=== PATIENT | male | born 1980 | race Caucasian/White ===

== ENCOUNTER 2020-01-19 10:27 | Emergency (ER) | payer OTHER ==
[~2020-01-19] VITALS: Ht 160 cm; Wt 45.4 kg
[2020-01-19 12:35] LABS: HEMATOCRIT 40.7 % (42.0-52.0); HEMOGLOBIN 13.6 gm/dL (14.0-18.0); MCHC 33.3 g/dL (28.0-37.0); MCV 95.9 fL (80.0-100.0); PLATELET COUNT 109 thou/uL (150-400); RBC 4.25 mil/uL (4.50-6.00); RDW 14.6 % (10.5-14.5)
[2020-01-19 12:49] LABS: CALCIUM 8.6 mg/dL (8.5-10.1); CREATININE 0.7 mg/dL (0.7-1.3); POTASSIUM 3.5 mmol/L (3.5-5.1)
[2020-01-19 13:00] LABS: ABSOLUTE NEUTROPHILS 2.6 thou/uL (1.4-8.2); ANISOCYTOSIS 1+; HYPOCHROMASIA SLIGHT
[2020-01-19 14:57] VITALS: BP 102/67
== END 2020-01-19 15:15 | disposition home or self-care (01) ==
LOC: ER 10:27
PROVIDERS: Emergency Medicine
DX: T70.3XXA Caisson disease [decompression sickness], initial encounter (principal); X58.XXXA Exposure to other specified factors, initial encounter

== ENCOUNTER 2020-08-09 13:10 | Emergency (ER) | payer OTHER ==
[~2020-08-09] VITALS: Ht 162.6 cm; Wt 54.4 kg
--- NOTE | ~2020-08-09 | EMS ---
[place] [address] EMS Patient Care Report Name: MOHINI SABA Room #: REG Kelly#: [id number] Admission: 08/09/20 Attend Phys: Discharge: Date of : 80 Report #: [id number] THIS REPORT FOR: //name// Report Transmitted: 08/09/2020 13:07 EMS Care Summary [place], [place]/[facility] Incident [phone] @ 08/09/2020 12:45 Incident Location [address] [place] [address] Patient MOHINI SABA Male, 40 Years 1980 Patient Address [address] [place] [address] Patient History Other,Neurological Condition - Other,Urinary Incontinence, Patient Allergies No known allergies, Patient Medications Unknown, Chief Complaint ASPIRATION Disposition Transported No Lights/[place] Dispatch Reason Choking Transported To [facility] Narrative RESPONDED TO CHOKING AT [facility]. UPON ARRIVAL PT FOUND ALERT AND SITTING IN WHEELCHAIR WITH NRB AT 15LPM ON O2 BY FF CREW. PT IS ALERT TO BASELINE AND VERY DROOLY. PENITENTIARY STAFF REPORT PT WAS EATING FRIED RICE AND APPEARED TO HAVE CHOKED. PT MAKE PRODUCTIVE COUGH AND GRUNTS/MOANS. PT CARRIED TO [place] [address] EMS Patient Care Report Name: MOHINI SABA Room #: REG ER Kelly#: [id number] Admission: 08/09/20 Attend Phys: Discharge: Date of : 80 Report #: [id number] OBTAINED. OXYGEN DISCONTINUED BECAUSE OF SO MUCH EXCESSIVE DROOL PRODUCTION. LUNG SOUNDS CLEAR WITH MINOR WHEEZING NOTED IN LOWER LOBES. SUCTION WAS ATTEMPTED AND SOME RICE AND DROOL NOTED. PT WAS NOT TOLERABLE TO SUCTION FOR LONG. PT CONTINUED TO MAKE PRODUCTIVE COUGHS AND ONLY MUCUS NOTED. PT TRANSPORTED TO [facility] WITH NO CHANGE IN CONDITION. PT TEAM LIFTED TO BED AND HANDRAILS UP. REPORT GIVEN TO NURSE. Initial Vitals @13:01P: 112,R: 20,BP: 143/80,GCS: 11,SpO2: 93,Revised Trauma: 11, @13:06P: 110,R: 20,BP: 146/72,Pain: 0/10,SpO2: 93, Assessments @13:01MENTAL:Person Oriented,SKIN:HEENT:Neck/Airway: Obstructed,Head/Face: No Abnormalities,LUNG SOUNDS:General: No Abnormalities,Left Upper: No Abnormalities,Right Upper: No Abnormalities,Left Lower: No Abnormalities,Right Lower: No Abnormalities,ABDOMEN:General: No Abnormalities,Left Upper: No Abnormalities,Right Upper: No Abnormalities,Left Lower: No Abnormalities,Right Lower: No Abnormalities,PELVIS//GI:Incontinence,EXTREMITIES:Left Arm: Weakness,Left Leg: Weakness,Right Leg: Weakness,Right Arm: Weakness,PULSE:NEURO:Other,@12:55MENTAL:Person Oriented,SKIN:HEENT:Neck/Airway: Obstructed,Head/Face: No Abnormalities,LUNG SOUNDS:ABDOMEN:PELVIS//GI:Incontinence,EXTREMITIES:Right Leg: Weakness,Left Leg: Weakness,Left Arm: Weakness,Right Arm: Weakness,PULSE:NEURO:Other, Impression Foreign Body in Respiratory Tract Procedures @12:55ALS AssessmentResponse: UnchangedSucceeded@13:00Suction Response: UnchangedSucceeded@PTAOxygen FlowRate: 15 Device: Non Re-breather Mask (NRB) Succeeded [address] RO[address]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,Oxygen FlowRate: 15 Device: Non Re-breather Mask (NRB) Succeeded, 12:44,Call Received 12:44,Dispatch Notified 12:45,Dispatched 12:46,En Route 12:54,On Scene 12:55,At Patient 12:55,ALS Assessment,Response: UnchangedSucceeded, 13:00,Suction Response: UnchangedSucceeded, 13:01,BP: 143/80 M,PULSE: 112,RR: 20 R,SPO2: 93 Ox,ETCO2: ,BG: ,PAIN: ,GCS: 11, 13:01,Depart Scene 13:06,BP: 146/72 M,PULSE: 110,RR: 20 R,SPO2: 93 Ox,ETCO2: ,BG: ,PAIN: 0,GCS: , 13:06,At Destination [facility] [address] [place] [address] EMS Patient Care Report Name: MOHINI SABA Room #: REG [facility].#: [id number] Admission: 08/09/20 Attend Phys: Discharge: Date of : 80 Report #: [id number] 13:19,Call Closed Disclaimer [email or web address] Copyright 2020 [employer] This EMS Care Summary contains data elements from the applicable legal record (which may be displayed differently). It is designed to provide pertinent information for the following purposes: continuity of care, clinical quality, and state data reporting. The complete legal record is available to ED staff and administrators of the receiving hospital in [employer]s Patient Tracker. All data is provided "as is."
[2020-08-09 13:11] VITALS: BP 119/44
== END 2020-08-09 13:56 | disposition home or self-care (01) ==
LOC: ER 13:10
DX: T17.328A Food in larynx causing other injury, initial encounter (principal); X58.XXXA Exposure to other specified factors, initial encounter; Y93.89 Activity, other specified; Y92.89 Other specified places as the place of occurrence of the external cause; Y99.8 Other external cause status